=== PATIENT | female | born 1960 | race Caucasian/White ===

== ENCOUNTER 2017-02-25 22:46 | Emergency (ER) | payer MEDICAID ==
[~2017-02-25] VITALS: Ht 170.2 cm; Wt 100.8 kg
[2017-02-25 22:52] VITALS: BP 159/90
[2017-02-25] MEDS ORDERED: IBUPROFEN 800 MG TABLET PO STA (23:23)
[2017-02-25] MEDS ORDERED: HYDROmorphone 1 MG/ML, 1ML IM STA (23:23)
[2017-02-25] MEDS ORDERED: HYDROmorphone 1 MG/ML, 1ML ONE (23:28)
[2017-02-25] MEDS ORDERED: IBUPROFEN 200 MG TABLET ONE (23:28)
== END 2017-02-25 23:48 | disposition home or self-care (01) ==
LOC: ED 23:42
DX: S39.012A Strain of muscle, fascia and tendon of lower back, initial encounter (principal); M47.896 Other spondylosis, lumbar region; M54.31 Sciatica, right side; X58.XXXA Exposure to other specified factors, initial encounter; Y93.89 Activity, other specified; Y92.89 Other specified places as the place of occurrence of the external cause; Y99.9 Unspecified external cause status
CPT/HCPCS: 96372; 99283; J1170; J7512